=== PATIENT | female | born 1960 | race Caucasian/White ===

== ENCOUNTER 2017-03-30 14:46 | Emergency (ER) | payer OTHER ==
[2017-03-30 15:09] VITALS: BP 135/87; PULSE 97; RESP 18; TEMP 98
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
--- NOTE | 2017-03-30 16:37 | XR ---
EXAMINATION TYPE: XR cervical spine comp , 5 VIEWS DATE OF EXAM ORDERED: 03/30/2017 HISTORY: Pain. COMPARISON: None. FINDINGS: There is a degenerative grade 1 spondylolisthesis of C6 on C7 and a mild retrograde listhe sis of C4 on C5. Atlantoaxial relationships are normal. The intervertebral foramina are reasonably we ll-maintained. No fractures are seen. There is degenerative disc disease and hypertrophic spondylosis as well as uncovertebral joint disease at C4-5 and C5-6. There is facet arthropathy at C5-6 and to a lesser extent C4-5 and C6-7. IMPRESSION: 1. NO ACUTE OSSEOUS LESION. 2. DEGENERATIVE CHANGE.
== END 2017-03-30 16:57 | disposition home or self-care (01) ==
LOC: EC 14:46
DX: S16.1XXA Strain of muscle, fascia and tendon at neck level, initial encounter (principal); V43.52XA Car driver injured in collision with other type car in traffic accident, initial encounter; Y92.410 Unspecified street and highway as the place of occurrence of the external cause
CPT/HCPCS: 72050; 99284

== ENCOUNTER → 2017-10-14 | Outpatient (CLI) | payer OTHER ==
[2017-10-14 17:41] LABS: Blood Urea Nitrogen 19 mg/dL (7-17)
== END | disposition home or self-care (01) ==
LOC: LABWHC1 17:02
PROVIDERS: ATTEND Ophthalmology
DX: Z01.812 Encounter for preprocedural laboratory examination (principal); H53.483 Generalized contraction of visual field, bilateral; D35.2 Benign neoplasm of pituitary gland
CPT/HCPCS: 36415; 82565; 84520

== ENCOUNTER → 2017-10-19 | Outpatient (CLI) | payer OTHER ==
--- NOTE | 2017-10-19 10:39 | MR ---
EXAMINATION TYPE: MR pituitary wo/w con DATE OF EXAM: 10/19/2017 6:41 AM COMPARISON: NONE HISTORY: Benign neoplasm of pituitary gland CONTRAST: Patient received 5.5 mL intravenous Gadavist gadolinium contrast. Multiplanar MultiSpin echo imaging of the pituitary fossa was performed. Unenhanced followed by cont rast enhanced images are submitted. The unenhanced portion of the study fails to demonstrate evidence for hyperintense pituitary lesion. The pituitary gland is of normal size and measures 9.6 x 6 mm within the left portion of the pituita ry gland there is a small filling defect on post contrast enhanced imaging measuring 2.8 mm and is fe lt to reflect a small pituitary microadenoma.. Pituitary stalk is midline. Suprasellar cistern is u nremarkable without evidence for mass. Optic chiasm has a normal appearance. Cavernous sinus includ ing the carotid vessels appear to be within normal limits. IMPRESSION: 1. Small pituitary microadenoma.
== END | disposition home or self-care (01) ==
LOC: RADMRIMAIN 05:57
PROVIDERS: ATTEND Ophthalmology
DX: D35.2 Benign neoplasm of pituitary gland (principal)
CPT/HCPCS: 70553; A9581